=== PATIENT | male | born 1965 | race Caucasian/White ===

== ENCOUNTER → 2020-01-19 15:20 | Outpatient (CLI) | payer OTHER, SELFPAY ==
--- NOTE | 2020-01-19 | DI.MRI.S_ITS ---
PROCEDURE: MR HEAD/BRAIN WO/W CON INDICATIONS: OTHER SPECIFIED TYPES OF NON HODGKIN LYMPHOMA TECHNIQUE: Noncontrast axial T1 spin echo, axial T2 fast spin echo, sagittal and axial FLAIR, coronal T2 fast spin echo, axial gradient echo, axial diffusion and ADC through the brain. After the administration of contrast, axial and coronal 3D VIBE or T1 spin echo with fat saturation through the brain. COMPARISON: [facility], MR, BRAIN W&WO CONTRAST, 06/09/2017, 10:51. [facility], MR, BRAIN W&WO CONTRAST, 02/10/2017, 9:55. FINDINGS: Image quality: Excellent. CSF Spaces: Basal cisterns are patent. No extra-axial fluid collections. Ventricles are normal in size and shape. Brain: No midline shift. No intracranial bleeds or masses. No abnormal intracranial enhancement. The brainstem appears normal. Diffusion-weighted images demonstrate no acute ischemic insults. There is a focal left parietal area of encephalomalacia involving the gyral surface where secondary thinning of the gyrus and underlying elevated flair signal is visualized, not present on prior MR scanning from 2017. This demonstrates no associated contrast enhancement. Normal intravascular flow voids are present. Skull and face: Calvarial marrow is normal in signal. Orbits appear normal. Sinuses: Sinuses and mastoids appear clear. IMPRESSION: The clinical history indicates presence of lymphoma, and the current study shows no evidence of intracranial lymphoma either involving the meningeal surfaces or the brain parenchyma itself. There is, however, a focal area of encephalomalacia with underlying elevated flair signal involving the left parietal lobe, without contrast enhancement or mass effect. This presumably represents an ischemic injury that occurred at some point subsequent to the 06/09/17 MR study, without available interval comparisons more recent. Please correlate clinically to determine whether a neurologic event has occurred between these 2 time points, and it would be helpful if head CT or brain MRI imaging from elsewhere is available for review. Dictated by: Carlos Jack M.D. on 01/19/2020 at 16:25 Approved by: Carlos Jack M.D. on 01/19/2020 at 16:32
== END ==
PROVIDERS: Family Provider Family Medicine; PCP Family Medicine
DX: C85.89 Other specified types of non-Hodgkin lymphoma, extranodal and solid organ sites (principal); G93.89 Other specified disorders of brain
CPT/HCPCS: 70553; A9579

== ENCOUNTER 2024-01-11 09:02 | Emergency (ER) | payer OTHER, SELFPAY ==
[2024-01-11 09:06] VITALS: PULSE 61; O2SAT 98
[2024-01-11 09:07] VITALS: BP 155/70; PULSE 60; O2SAT 97
[2024-01-11 09:08] VITALS: BP 155/70; PULSE 61; RESP 18; TEMP 36.6; O2SAT 98; BMI 30.8
--- NOTE | 2024-01-11 09:15 | ED.HEATRA ---
HPI - Head Injury General Chief complaint: Head Injury Stated complaint: needs stitches in head Time Seen by Provider: 01/11/24 09:06 Source: patient Mode of arrival: Ambulatory History of Present Illness HPI Narrative: Patient 58-year-old male history of seizures presents today with head injury. He reports that he walked into the [place] of the car. The back door was open he bumped into it. It was bleeding quite a bit. Not on antiplatelet or anticoagulation medications. Tetanus is up-to-date. Bleeding is now well controlled. Did not lose consciousness no nausea vomiting or numbness tingling weakness. Related Data Allergies Allergy/AdvReac Type Severity Reaction Status Date / Time adhesive tape Allergy Hives Verified 01/11/24 09:12 Penicillins Allergy Hives Verified 01/11/24 09:12 Exam Initial Vital Signs Initial Vital Signs: Vital Signs Pulse Rate 61 01/11/24 09:06 Pulse Oximetry 98 01/11/24 09:06 GENERAL: Well-appearing, well-nourished and in no acute distress. HEAD: No depressions crepitations EOMI CARDIOVASCULAR: peripheral pulses in tact, cap refill <2 sec RESPIRATORY: No respiratory distress, speaks in full sentences without difficulty EXTREMITIES: Normal range of motion, no clubbing or edema. Neurovascularly intact NEUROLOGICAL: Cranial nerves II through XII grossly intact. Normal gait and speech. SKIN: Posterior scalp abrasion no laceration bleeding controlled, good skin approximation it does not pull apart Course Vital Signs Vital signs: Vital Signs - 8 hr 01/11/24 09:06 01/11/24 09:07 01/11/24 09:07 Temperature Pulse Rate 61 60 Respiratory Rate Blood Pressure 155/70 H Pulse Oximetry 98 97 Oxygen Delivery Method 01/11/24 09:08 Temperature 97.8 F Pulse Rate 61 Respiratory Rate 18 Blood Pressure 155/70 H Pulse Oximetry 98 Oxygen Delivery Method Room Air MDM - Head Injury MDM Narrative Medical decision making narrative: Patient is a healthy male who has scalp abrasion. Skin does not pull apart no need for repair. It was cleaned off. He has no loss of conscious nausea or vomiting no need for head CT. He is on antiplatelet coagulation. No high-risk mechanism. Discharge Plan Departure Patient Disposition: Home Clinical Impression: Abrasion head Instructions: DI for Abrasion Activity Restrictions/Additional Instructions: *You have been diagnosed with head abrasion *What to do: Apply bacitracin ointment to it 1-2 times daily keep clean with soap and water may shampoo and bathe as normal *Continue to take medications as directed *Follow up with your primary care provider in 2-3 days or call [phone] *Return to ER if you should have redness swelling drainage or any new, worsening or concerning symptoms Referrals: Tiago Betts MD [Primary Care Provider] - Stand Alone Forms: Patient Portal/API
== END 2024-01-11 09:26 | disposition home or self-care (01) ==
PROVIDERS: Emergency Provider Emergency Medicine; Family Provider Family Medicine; PCP Family Medicine
DX: S00.01XA Abrasion of scalp, initial encounter (principal); W22.8XXA Striking against or struck by other objects, initial encounter
CPT/HCPCS: 99281; 99282

== ENCOUNTER 2024-07-01 09:33 | Day surgery (SDC) | payer OTHER, SELFPAY ==
--- NOTE | 2024-07-01 | PATH_ITS ---
[facility] Accession Number: [id number] No. of containers..05 Tissue . 01 Material submitted: . PART A: colon - TRANSVERSE POLYP PART B: colon - ASCENDING POLYP PART C: colon - DESCENDING POLYP PART D: colon - SIGMOID POLYP @ 20 PART E: rectum - RECTAL POLYP . 01 Diagnosis: A. TRANSVERSE COLON POLYP, BIOPSY: Tubular adenoma. . B. ASCENDING COLON POLYPS, BIOPSY: Sessile serrated adenoma. Tubulovillous adenoma. No high-grade dysplasia or malignancy. . C. DESCENDING COLON POLYP, BIOPSY: Tubular adenoma. . D. SIGMOID COLON POLYP AT 20 CM, BIOPSY: Tubular adenoma. . E. RECTAL POLYP, BIOPSY: Hyperplastic polyp. [facility] 07/02/2024 1639 Local . 01 Electronically signed: . Radha Montesinos MD, Pathologist NPI- [id number] . 01 Gross description: . Part A: TRANSVERSE POLYP: Received in formalin is 1 fragment(s) of es[place], soft tissue measuring 0.6 x 0.4 x 0.3 cm submitted entirely in 1 cassette(s) Part B: ASCENDING POLYP: Received in formalin are multiple fragment(s) of españa, soft tissue measuring 0.1 x 0.1 x 0.1 cm to 0.8 x 0.7 x 0.6 cm submitted entirely in 1 cassette(s) Part C: DESCENDING POLYP: Received in formalin is 1 fragment(s) of españa, soft tissue measuring 0.7 x 0.6 x 0.6 cm submitted entirely in 1 cassette(s) Part D: SIGMOID POLYP @ 20: Received in formalin is 1 fragment of españa soft tissue measuring 0.9 x 0.8 x 0.8 cm. Specimen is sectioned and submitted in its entirety in 1 cassette. Part E: RECTAL POLYP: Received in formalin are 2 fragment(s) of es[place]ña, soft tissue measuring 0.3 x 0.3 x 0.2 cm to 0.8 x 0.4 x 0.2 cm submitted entirely in 1 cassette(s) /ANDREW 07/02/2024 0059 Local . 01 Pathologist provided ICD-10: D12.3, D12.2, D12.4, D12.8, D12.5 . 01 CPT . 223672, 665504, [id number], [id number], [id number] Specimen Comment: A courtesy copy of this report has been sent to [phone] Performed at: [address] [place] [address], [place], [place] [id number] MD David Mason MD Phone: [phone]
[2024-07-01 10:11] VITALS: BP 127/74; PULSE 67; RESP 17; TEMP 36.1; O2SAT 98
--- NOTE | 2024-07-01 10:54 | PM.HP.1 ---
History of Present Illness History of Present Illness Date Patient Seen: 07/01/24 Time Patient Seen: 10:54 Chief complaint: Screening Colonoscopy Narrative: Jairo is a 59-year-old man with a history of colon polyps. His last colonoscopy was approximately 2008 [facility] Social History Smoking Status: Never smoker alcohol intake: never Meds Home Medications and Allergies Home Medications Medication Instructions Recorded Confirmed Type sodium,potassium,mag sulfates 17.5 See Rx Instructions PO .COMPLEX 05/18/24 Rx gram-3.13 gram-1.6 gram oral soln #354 mL (Suprep Bowel Prep Kit) atorvastatin 20 mg tablet 20 mg PO DAILY 07/01/24 07/01/24 History lamotrigine 150 mg tablet 150 mg PO BID 07/01/24 07/01/24 History Allergies Allergy/AdvReac Type Severity Reaction Status Date / Time adhesive tape Allergy Hives Verified 07/01/24 10:08 Penicillins Allergy Hives Verified 07/01/24 10:08 Exam Vital Signs (past 8 hours): - 07/01/24 10:11 Temperature 96.9 F L Pulse Rate 67 Respiratory Rate 17 Blood Pressure 127/74 Pulse Oximetry 98 Oxygen Delivery Method Room Air Oxygen Delivery Method Room Air Const General: No acute distress Resp Effort & Inspection: normal respiratory effort Assessment & Plan Assessment and plan (1) History of colon polyps: Status: Acute Plan We reviewed the risks and benefits of colonoscopy for history of polyps and he would like to proceed. Time-Based Coding :: [TOTAL MINUTES] spent with patient and on the chart (including review of chart, obtaining history, exam, reviewing outside data, placing orders, documenting exam and treatment plan, and counseling patient) on [DATE].
--- NOTE | 2024-07-01 11:58 | PM.OP.COLON ---
Operative Date/Time/Diagnoses Date of procedure: 07/01/24 Time of procedure: 11:58 Pre-op diagnosis: History of polyps Post-op diagnosis: same Procedure & Clinicians Study performed: Colonoscopy Same procedure as scheduled: Yes Surgeon: Taras James Procedure Notes Procedure in detail: Surgeon: Taras James MD Anesthesia: Analilia Arriola CRNA Procedure: The patient was brought to the endoscopy suite, placed in left lateral decubitus position. The patient was connected to monitoring devices. A time-out was performed. Sedation was administered. Once the patient was adequately sedated, a digital rectal exam was performed and was normal. The scope was then inserted and advanced to the cecum where the appendiceal orifice was identified and photographed. The scope was then slowly withdrawn over greater than 6 minutes. The mucosa was thoroughly inspected. There were 3 polyps in the ascending colon, the largest of which was about 1.8 cm hepatic flexure. The smaller polyps were removed with cold snare. The larger polyp was removed piecemeal with hot snare. There were 2 5 mm polyps in the transverse colon removed with a cold snare. There was a 7 mm polyp in the descending colon removed with cold snare. There was a 1.5 cm polyp in the sigmoid colon at 20 cm removed with a hot snare. There were 2 small polyps in the rectum removed with cold snare. The scope was retroflexed in the rectum. No other abnormalities were seen. The scope was straightened and removed. The patient was awakened and brought to recovery. Scope withdrawal time: 38 minutes Sedation time: 50 minutes EBL: 5 mL Findings: Multiple polyps as listed above Post-procedure Disposition: PACU
[2024-07-01 12:03] VITALS: BP 112/70; PULSE 66; RESP 16; O2SAT 96
[2024-07-01 12:05] VITALS: BP 113/74; PULSE 63; RESP 16; TEMP 36.2; O2SAT 98
[2024-07-01 12:11] VITALS: BP 112/74; PULSE 57; RESP 16; O2SAT 98
[2024-07-01 12:17] VITALS: BP 112/66; PULSE 65; RESP 16; TEMP 36.2; O2SAT 100
[2024-07-01 12:25] VITALS: BP 110/70; PULSE 68; RESP 16; TEMP 36.2; O2SAT 98
== END 2024-07-01 12:27 | disposition home or self-care (01) ==
PROVIDERS: Family Provider Family Medicine; PCP Family Medicine; Referring Provider Surgery; Visit Provider Surgery
PROC: 0DJD8ZZ Inspection of Lower Intestinal Tract, Via Natural or Artificial Opening Endoscopic (ICD-10-PCS; CPT 45378; principal; 2024-07-01 11:00)
DX: Z12.11 Encounter for screening for malignant neoplasm of colon (principal); Z86.0100 Personal history of colon polyps, unspecified; D12.3 Benign neoplasm of transverse colon; D12.2 Benign neoplasm of ascending colon; D12.4 Benign neoplasm of descending colon; D12.5 Benign neoplasm of sigmoid colon; K62.1 Rectal polyp
CPT/HCPCS: 45385; J2405; J2704